=== PATIENT | male | born 1960 | race Caucasian/White ===

== ENCOUNTER 2020-04-10 11:44 | Emergency (ER) | payer BC ==
[~2020-04-10] VITALS: Ht 172.7 cm; Wt 65.9 kg
[~2020-04-10 11:44] MED LIST: ENAL2.5T PO; GABA300C10 PO; METO25TA35 PO; MINO100T2 PO; MORP30TA PO; PRAV40TA2 PO
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
--- NOTE | 2020-04-10 12:34 | NUR ---
PATIENT TOLD MD LUCAS THAT HE PLANS TO SHOOT HIMSELF, ERA REQUESTED
[2020-04-10 12:51] LABS: BASOPHILS # (AUTO) 0.11 x10^3/uL (0-0.1); BASOPHILS % (AUTO) 1 % (0-1); EOSINOPHILS # (AUTO) 0.02 x10^3/uL (0-0.4); EOSINOPHILS % (AUTO) 0 % (1-7); LYMPHOCYTES # (AUTO) 0.91 x10^3/uL (1-3.4); LYMPHOCYTES % (AUTO) 11 % (22-44); MD NO; MEAN CORPUSCULAR VOLUME 105.7 fL (81-97); MEAN PLATELET VOLUME 8.7 fL (7.4-10.4); MONOCYTES # (AUTO) 0.85 x10^3/uL (0.2-0.8); MONOCYTES % (AUTO) 11 % (2-9); NEUTROPHILS # (AUTO) 6.13 x10^3/uL (1.8-6.8); NEUTROPHILS % (AUTO) 77 % (42-75); PLATELET COUNT 205 x10^3/uL (130-400); RED BLOOD COUNT 4.64 x10^6/uL (4.38-5.82); RED CELL DISTRIBUTION WIDTH 14.4 % (9.4-14.8)
[2020-04-10 13:02] LABS: ALANINE AMINOTRANSFERASE 134 U/L (12-78); ALBUMIN 3.3 g/dL (3.4-5.0); ANION GAP 16 mmol/L (5-15); CALCIUM 8.1 mg/dL (8.5-10.1); CHLORIDE 105 mmol/L (98-107); CREATININE 0.91 mg/dL (0.7-1.3)
[2020-04-10 13:12] LABS: ALKALINE PHOSPHATASE 109 U/L (45-117); BILIRUBIN,TOTAL 0.7 mg/dL (0.2-1.0); SALICYLATE LEVEL 2.7 mg/dL (2.8-20.0); TOTAL PROTEIN 7.1 g/dL (6.4-8.2)
[2020-04-10] MEDS ORDERED: SERTRALINE 50MG TABLET ONE (14:24)
[2020-04-10] MEDS ORDERED: SERTRALINE 50MG TABLET PO SCH (14:30)
[2020-04-10 14:41] VITALS: BP 124/65
== END 2020-04-10 14:43 | disposition home or self-care (01) ==
LOC: ED 14:00
DX: F32.9 Major depressive disorder, single episode, unspecified (principal); F10.129 Alcohol abuse with intoxication, unspecified; I25.10 Atherosclerotic heart disease of native coronary artery without angina pectoris; Z95.5 Presence of coronary angioplasty implant and graft; Y90.9 Presence of alcohol in blood, level not specified
CPT/HCPCS: 36415; 80053; 80307; 84443; 85025; 99284